=== PATIENT | female | born 1935 | race Caucasian/White ===

== ENCOUNTER 2017-06-27 10:43 | Outpatient (CLI) | payer MEDICARE, OTHER ==
[~2017-06-27] VITALS: Ht 152.4 cm; Wt 71.1 kg
[~2017-06-27 10:43] MED LIST: ASPI1TAB PO; BUPR1TAB52 PO; COZA100T2 PO; ESTR625TA PO; HYDR12CA PO; META1.7W PO; MULT1TAB10 PO; OMEP20CA3 PO; PATA0.2S OU; STOO100C PO; TYLE325T5 PO; TYLE500T78 PO; VITATAB74 PO; ZYRT10TA2 PO
[2017-06-27] MEDS ORDERED: NS 1,000 ML IV ONE (11:00)
[2017-06-27] MEDS ORDERED: PROPOFOL 200 MG/20 ML VIAL As Ordered ONE (12:15)
--- NOTE | 2017-06-27 12:32 | ROOR ---
Patient Name: Sonia Marx Procedure Date: 06/27/2017 12:09 PM Date of : 1935 Age: 81 Room: [facility] Gender: Female Note Status: Finalized Procedure: Colonoscopy Indications: Hematochezia Providers: Martínez BARBA MD Referring MD: Cynthia MARTINEZ MD Requesting Provider: Medicines: Monitored Anesthesia Care Complications: No immediate complications. Procedure: Pre-Anesthesia Assessment: - The heart rate, respiratory rate, oxygen saturations, blood pressure, adequacy of pulmonary ventilation, and response to care were monitored throughout the procedure. The Colonoscope was introduced through the anus and advanced to the cecum, identified by appendiceal orifice and ileocecal valve. The colonoscopy was performed without difficulty. The patient tolerated the procedure well. The quality of the bowel preparation was good. Findings: The perianal and digital rectal examinations were normal. Internal hemorrhoids were found during retroflexion. The hemorrhoids were medium-sized. A few medium-mouthed diverticula were found in the sigmoid colon and transverse colon. The entire examined colon appeared normal on direct and retroflexion views. (Exam: Complete, Prep: Good or Excellent.) Impression: - (Exam: Complete, Prep: Good or Excellent.) - Moderate Internal hemorrhoids. - Mild diverticulosis in the sigmoid colon and in the transverse colon. - The entire examined colon is normal on direct and retroflexion views. - No specimens collected. Recommendation: - Use fiber, for example Citrucel, Fibercon, Konsyl or Metamucil. - Return to referring physician as previously scheduled. Martínez Barba MD Martínez BARBA MD 06/27/2017 12:31:53 PM This report has been signed electronically. Number of Addenda: 0 Note Initiated On: 06/27/2017 12:09 PM Estimated Blood Loss: Estimated blood loss: none.
[2017-06-27 13:08] VITALS: BP 136/64
== END 2017-06-27 13:10 | disposition home or self-care (01) ==
LOC: M OPP 10:43
PROVIDERS: ATTEND Internal Medicine Gastroenterology
DX: K92.1 Melena (principal); K64.8 Other hemorrhoids; K57.30 Diverticulosis of large intestine without perforation or abscess without bleeding; I10 Essential (primary) hypertension; R12 Heartburn; F41.9 Anxiety disorder, unspecified; F32.9 Major depressive disorder, single episode, unspecified; R32 Unspecified urinary incontinence; M19.90 Unspecified osteoarthritis, unspecified site; Z80.8 Family history of malignant neoplasm of other organs or systems; Z88.0 Allergy status to penicillin; Z79.82 Long term (current) use of aspirin; Z79.899 Other long term (current) drug therapy

== ENCOUNTER → 2019-07-05 | Outpatient (REF) | payer MEDICARE, OTHER ==
[~2019-07-05] MED LIST changes: -ASPI1TAB PO; +ASPI81TA26 PO; -META1.7W PO; +METAMUCIL1 WAF PO; +MM S100C PO; +OMEP1CAP73 PO; -OMEP20CA3 PO; -STOO100C PO; +ZYRT10CA5 PO; -ZYRT10TA2 PO
== END ==
LOC: M LAB LCGH 13:21
PROVIDERS: ATTEND Physician Assistant
DX: D48.5 Neoplasm of uncertain behavior of skin (principal)

== ENCOUNTER → 2021-07-13 | Outpatient (REF) | payer MEDICARE, OTHER ==
[~2021-07-13] MED LIST changes: +OLOP2.5D3 OU; -PATA0.2S OU
== END ==
LOC: M LAB REF 17:27
PROVIDERS: ATTEND Internal Medicine Nephrology
DX: N18.32 Chronic kidney disease, stage 3b (principal)

== ENCOUNTER → 2021-11-18 | Outpatient (REF) | payer MEDICARE, OTHER | LOC: M LAB REF 17:53 | PROVIDERS: ATTEND Nurse Practitioner Family | DX: N18.32 Chronic kidney disease, stage 3b (principal) ==

== ENCOUNTER → 2024-12-17 | Outpatient (REF) | payer MEDICARE, OTHER ==
[~2024-12-17] MED LIST changes: -COZA100T2 PO; +LOSA-530 PO
== END ==
LOC: M SFHCDERM 17:05
PROVIDERS: ATTEND Physician Assistant
DX: D22.39 Melanocytic nevi of other parts of face (principal); L57.8 Other skin changes due to chronic exposure to nonionizing radiation